=== PATIENT | male | born 1975 | race Caucasian/White ===

== ENCOUNTER 2023-10-05 17:07 | Emergency (ER) | payer SELFPAY ==
[2023-10-05 17:09] VITALS: BP 123/86; PULSE 73; RESP 18; TEMP 36.4; O2SAT 98; BMI 26.5
[2023-10-05 17:41] VITALS: BP 132/93
[2023-10-05 17:43] LABS: Chloride 101 mmol/L (98-107); Sodium 136 mmol/L (136-145)
[2023-10-05 17:44] LABS: Potassium 4.4 mmoL/L (3.5-5.1)
[2023-10-05 17:46] LABS: Alanine Aminotransferase 56 U/L (12-78); Albumin Level 4.8 g/dl (3.5-5.0); Albumin/Globulin Ratio 1.4 (1.1-1.8); Alkaline Phosphatase 171 U/L (38-126); Anion Gap 15.4 mEq/L (5-15); Aspartate Amino Transferase 74 U/L (17-59); Basophils % 0.2 % (0.1-2.0); Bilirubin,Total 0.5 mg/dl (0.2-1.3); Blood Urea Nitrogen 16 mg/dl (9-20); Calcium 9.7 mg/dl (8.4-10.2); Carbon Dioxide 24 mmol/L (22.0-30.0); Creatinine Clearance Estimated 121 mL/min (50-200); Eosinophils # 0.5 K/mm3 (0.0-0.4); Estimated Glomerular Filt Rate 119 ml/min (>60); GFR (African American) 144 ML/MIN (>60); Globulin 3.4 g/dL (1.3-3.2); Glucose 101 mg/dl (74-100); Hemoglobin 15.3 g/dL (14.1-18.0); Lipase 61 U/L (23-300); Lymphocytes # 2.9 K/mm3 (0.7-4.5); Lymphocytes % 26.8 % (10-50); Mean Corpuscular Volume 94.1 fl (80-94); Mean Platelet Volume 7.7 fl (7.4-10.4); Monocytes # 0.6 K/mm3 (0.1-1.0); Monocytes % 5.1 % (1.7-9.3); Neutrophils # 6.8 K/mm3 (1.8-7.8); Neutrophils % 62.9 % (37.0-80.0); Platelet Count 361 K/mm3 (142-424); Red Blood Count 4.78 M/mm3 (4.60-6.20); Red Cell Distribution Width 13.3 % (11.5-17.5); Total Protein,Serum 8.2 g/dl (6.3-8.2); White Blood Count 10.8 K/mm3 (4.8-10.8)
[2023-10-05 18:54] VITALS: BP 136/82; PULSE 72; O2SAT 98
--- NOTE | 2023-10-05 19:59 | HMH.EDGENADL ---
Discharge Plan Disposition Chief Complaint: Abdominal Pain Referrals Follow up/Referrals: Provider,Referral, [Primary Care Provider] - See instructions Clinical Impressions Clinical Impression: Colorectal cancer, stage IV, Complete small bowel obstruction Instructions Patient Instructions: DI for Acute Abdominal Pain Discharge ED Provider: Aldo To General Adult HPI General Chief complaint: Abdominal Pain Stated complaint: abdominal pain Time Seen by Provider: 10/05/23 17:17 Mode of Arrival: Ambulatory Source of Information: Patient Limitations: No Limitations Description of Symptoms (Recalled from ER Triage Doc. by RN): c/o upper abdomen pain for 3 days, states that it started off with mild pain and increased over time. History of Present Illness HPI narrative: 48-year-old male with, COPD, inguinal and ventral hernia status postrepair senting with abdominal pain. Patient states that he has had worsening abdominal pain for 3 days. Crescendo, feels like cramping pain. Does not radiate. Made better by laying on his stomach, not made worse by anything in particular. Patient has been vomiting nonbloody, nonbilious vomit. Still having bowel movements and passing gas. No fevers or chills. No urinary symptoms. Feels similar to when he had problems with his hernias in the past. Related Data Allergies Allergy/AdvReac Type Severity Reaction Status Date / Time aspirin Allergy Severe Swelling Verified 10/05/23 17:35 of Lip/Tongue/Throat PFSH FOR[facility]LY [facility] Disclaimer: The information contained in this section may have been updated after the patient was seen, as this information can be updated by other users. Social History Smoking Status: Current every day smoker alcohol intake: never current occupational status: unemployed Travel in the last 8 weeks: None ROS Obtained: Yes All systems reviewed & no additional complaints except as documented Physical Exam General General appearance: alert and in no apparent distress Head Head exam: atraumatic and normocephalic Eye Eye exam: Present normal appearance, PERRL and EOMI ENT ENT exam: Present mucous membranes moist Neck Neck exam: Present normal inspection, full ROM and trachea midline Respiratory Respiratory exam: Absent respiratory distress, wheezes, stridor, accessory muscle use or prolonged expiratory phase Cardiovascular Cardiovascular exam: Present normal rhythm Abdominal Exam Abdominal exam: Present soft, tenderness and normal bowel sounds; Absent distention, guarding, rebound or rigidity Abdominal tenderness: Present diffuse and mild Extremities Exam Extremities exam: Absent edema Neurological Exam Neurological exam: Present alert, oriented X3, CN II-XII intact and normal gait; Absent motor sensory deficit Skin Skin exam: Present warm and dry; Absent diaphoresis or erythema Medical Decision Making Medical Records Medical records reviewed: Yes I reviewed the patient's medical records. Librado Inquiry Pt receiving controlled substance: No Librado was queried for this patient: No Vital Signs: 10/05/23 17:09 10/05/23 17:41 10/05/23 18:54 Temperature 97.6 F Temperature Source Oral Pulse Rate 72 Pulse Rate [Left Radial] 73 Respiratory Rate 18 Blood Pressure 132/93 H 136/82 Blood Pressure [Right Arm] 123/86 Blood Pressure Mean [Right Arm] 98 Blood Pressure Source [Right Arm] Automatic Cuff Blood Pressure Position [Right Arm] Sitting 02 Sat by Pulse Oximetry 98 98 Oxygen Delivery Method Room Air Room Air Lab Data Lab Results 10/05/23 17:33: WBC 10.8, RBC 4.78, Hgb 15.3, Hct 45.0, MCV 94.1 H, MCH 32.0 H, MCHC 34.0, RDW 13.3, Plt Count 361, MPV 7.7, Neut % (Auto) 62.9, Lymph % (Auto) 26.8, [place] % (Auto) 5.1, Eos % (Auto) 5.0, Baso % (Auto) 0.2, Neut # (Auto) 6.8, Lymph # (Auto) 2.9, [place] # (Auto) 0.6, Eos # (Auto) 0.5 H, Baso # (Auto) 0.0, Sodium 136, Potassium 4.4, Chloride 101, Carbon Dioxide 24, Anio
[2023-10-05 20:13] LABS: Lactic Acid 0.9 mmol/L (0.7-2.1)
--- NOTE | 2023-10-05 20:14 | CT_ITS ---
PROCEDURE INFORMATION: Exam: CT Abdomen And Pelvis With Contrast Exam date and time: 10/05/2023 9:21 PM Age: 48 years old Clinical indication: Abdominal pain; Localized; Upper; Patient HX: Abd pain x3 days; Additional info: Rlq abd pain TECHNIQUE: Imaging protocol: Computed tomography of the abdomen and pelvis with contrast. Radiation optimization: All CT scans at this facility use at least one of these dose optimization techniques: automated exposure control; mA and/or kV adjustment per patient size (includes targeted exams where dose is matched to clinical indication); or iterative reconstruction. Contrast material: ISOVUE; Contrast volume: 75 ml; Contrast route: IV; REPORTING DATA: Count of CT and Cardiac NM exams in prior 12 months: This patient has received 0 known CTs and 0 known cardiac nuclear medicine studies in the 12 months prior to the current study. COMPARISON: No relevant prior studies available. FINDINGS: Liver: There are numerous masses throughout the liver most suggestive of hepatic metastatic disease. Gallbladder and bile ducts: Normal. No calcified stones. No ductal dilation. Pancreas: The pancreas is of normal size and morphology, without evidence of masses, cysts, or calcifications. The pancreatic duct is not dilated. Spleen: The spleen is normal in size and attenuation. No splenic masses or cysts are observed. Adrenal glands: The adrenal glands appear normal. Kidneys and ureters: Both kidneys are of normal size and show uniform attenuation. There are no renal masses, cysts, or calculi. The adrenal glands appear normal. Stomach and bowel: There are dilated small bowel loops in the right hemipelvis with a focal point of transition identified in the higher pelvis (image 81 series 3), the appearance is compatible with small bowel obstruction. No evidence for perforation. Appendix: No evidence of appendicitis. Intraperitoneal space: Unremarkable. No free air. No significant fluid collection. Vasculature: The abdominal aorta and its major branches appear normal without evidence of aneurysm or stenosis. The portal and mesenteric veins are patent. Lymph nodes: There is upper abdominal lymphadenopathy such as a partially necrotic 1.3 cm supra celiac node (image 24 series 3). Urinary bladder: Unremarkable as visualized. Reproductive: No significant pathology. Bones/joints: The visualized osseous structures of the abdomen and pelvis appear intact and normal for patient age with no evidence of fractures or lytic or sclerotic lesions. Soft tissues: Prior right inguinal hernia repair. There are postsurgical changes of the ventral abdominal wall. IMPRESSION: 1. 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 2. Small bowel obstruction in the right lower quadrant without evidence for perforation.
--- NOTE | 2023-10-05 21:47 | PC.NURSE ---
ED doctor on phone with [facility]
--- NOTE | 2023-10-05 22:03 | PC.NURSE ---
contacted [facility] for surgical oncology for new onset of stage 4 colon cancer diagnoses.
--- NOTE | 2023-10-05 22:12 | PC.NURSE ---
FLORA contacted to [employer] to [email or web address]
--- NOTE | 2023-10-06 00:15 | PC.NURSE ---
Nurse to nurse report to Martha HERNANDEZ at [facility]
[2023-10-06 01:37] VITALS: BP 130/88; PULSE 77; RESP 18; TEMP 36.7; O2SAT 98
== END 2023-10-06 01:39 | disposition short-term general hospital (02) ==
PROVIDERS: Emergency Provider Emergency Medicine
DX: K56.601 Complete intestinal obstruction, unspecified as to cause (principal); C18.9 Malignant neoplasm of colon, unspecified; J44.9 Chronic obstructive pulmonary disease, unspecified; F17.200 Nicotine dependence, unspecified, uncomplicated
CPT/HCPCS: 74177; 80053; 83605; 83690; 85025; 96361; 96374; 96375; 99285; J0131; J2405; Q9967